=== PATIENT | male | born 1955 | race Two or more races ===

== ENCOUNTER → 2025-01-03 | Outpatient (CLI) | payer MEDICARE, SELFPAY ==
--- NOTE | 2025-01-03 08:45 | XR_ITS ---
EXAMINATION: Transrectal prostate sonography TECHNIQUE: Grayscale transrectal sonographic images prostate Date and time: January 03, 2025, 0859 hours INDICATIONS: Diagnosis 0.9 prostatic hypertrophy with lower urinary tract symptoms difficulty urinating months. FINDINGS: Prostate 4.4 x 3.0 x 5.0 cm volume 35 cc no prostate nodules IMPRESSION: Mild prostatomegaly, no prostate nodules
== END | disposition home or self-care (01) ==
LOC: CDIM 08:26
PROVIDERS: PCP Physician Assistant; Referring Provider Physician Assistant; Visit Provider Physician Assistant
DX: N40.0 Benign prostatic hyperplasia without lower urinary tract symptoms (principal)
CPT/HCPCS: 76872